=== PATIENT | male | born 1965 | race Caucasian/White ===

== ENCOUNTER 2020-04-17 12:21 | Inpatient (IN) | payer BC ==
[2020-04-17] MEDS ORDERED: Ondansetron 4 MG/2 ML SDV IVPUSH ONE (12:51)
[2020-04-17] MEDS ORDERED: HYDROmorphone 1 MG/ML Syringe IVPUSH ONE (12:53)
[2020-04-17] MEDS ORDERED: Famotidine 20 MG/2 ML SDV IVPUSH ONE (12:53)
[2020-04-17] MEDS ORDERED: Diatrizoate Meglumine/Diatrizoate Sodium 37% 120 ML Bottle PO ONE (13:18)
[2020-04-17] MEDS ORDERED: Iopamidol 612 MG/ML 100 ML Bottle IVPUSH ONE (13:18)
[2020-04-17] MEDS: Sodium Chloride 0.9% 1,000 ML IV SCH ×2 (13:18→15:56)
--- NOTE | 2020-04-17 13:20 | CR ---
Chest: Portable view of the chest was obtained. Comparison: No prior chest imaging is available. Parenchymal masses are seen within both sides of the chest, largest on the right side measures 4.9 cm. Right-sided infusion catheter is seen. Heart is mildly enlarged. Upper mediastinum is normal. Bony structures are grossly intact. Impression: 1. Multiple pulmonary masses. 2. Right-sided infusion catheter. 3. Nothing acute is definitely appreciated. Diagnostic code #9 This report was dictated in MDT
[2020-04-17] MEDS: Sodium Chloride 0.9% 10 ML Syringe FLUSH PRN ×2 (13:23→14:08)
--- NOTE | 2020-04-17 13:48 | EDM.PDOC ---
ED HPI GENERAL MEDICAL PROBLEM - General Chief Complaint: General Stated Complaint: RAPID HEART RATE Time Seen by Provider: 04/17/20 12:34 Source of Information: Reports: Patient, Family, Provider History Limitations: Reports: No Limitations - History of Present Illness INITIAL COMMENTS - FREE TEXT/NARRATIVE: The patient presents from Dr Lund office for rapid heart rate, nausea and upper abdominal pain. 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 He has been feeling weak for over a week. With nausea but no vomiting. He also has no appetite. He has shortness of breath with exertion but no chest pain. He has no fever, chills, cough, congestion, runny nose, or dysuria. He was on IV chemo but he was not tolerating that. He then started Affinitor orally for the cancer. He did not tolerate that. He went to see Dr Solis today and his heart rate was very fast. He was sent over for further work up. Onset: Gradual Duration: Week(s): Location: Reports: Abdomen Quality: Reports: Sharp Severity: Moderate Improves with: Reports: None Worsens with: Reports: None Associated Symptoms: Reports: Loss of Appetite, Nausea/Vomiting, Shortness of Breath. Denies: Chest Pain, Cough, Fever/Chills, Headaches Abdominal Pain Score (Numeric/FACES): 6 - Related Data Allergies Allergy/AdvReac Type Severity Reaction Status Date / Time No Known Drug Allergies Allergy N/A Verified 04/17/20 12:39 Home Meds: Home Meds Albuterol Sulfate [Albuterol Sulfate Hfa] 8.5 gm IH 03/01/20 [History] Ertugliflozin Pidolate [Steglatro] 5 mg PO DAILY 03/01/20 [History] Hydrocodone/Acetaminophen [[place] 5-325 Tablet] 1 each PO 03/01/20 [History] OLANZapine [ZyPREXA] 10 mg PO DAILY 03/01/20 [History] Omeprazole 20 mg PO WITHBREAKFAST 03/01/20 [History] Prochlorperazine [Compazine] 10 mg PO Q6H PRN 03/01/20 [History] Sucralfate [Carafate] 1 gm PO 03/01/20 [History] atorvaSTATin [Lipitor] 10 mg PO BEDTIME 03/01/20 [History] dexAMETHasone [Dexamethasone] 4 mg PO Q6H 03/01/20 [History] metFORMIN [Glucophage XR] 500 mg 03/01/20 [History] ondansetron HCL [Zofran] 8 mg PO 03/01/20 [History] ED ROS GENERAL - Review of Systems Review Of Systems: See Below Constitutional: Reports: Malaise, Weakness, Fatigue. Denies: Fever, Chills HEENT: Reports: No Symptoms Respiratory: Reports: Shortness of Breath. Denies: Cough Cardiovascular: Reports: Palpitations. Denies: Chest Pain Endocrine: Reports: No Symptoms GI/Abdominal: Reports: Abdominal Pain, Nausea. Denies: Diarrhea, Vomiting : Reports: No Symptoms ED EXAM, GENERAL - Physical Exam Exam: See Below Exam Limited By: No Limitations General Appearance: Alert, No Apparent Distress Ears: Normal External Exam Nose: Normal Inspection Head: Atraumatic, Normocephalic Neck: Normal Inspection Respiratory/Chest: No Respiratory Distress, Decreased Breath Sounds Cardiovascular: No Edema, No Murmur, Tachycardia GI/Abdominal: Soft, Non-Tender, No Organomegaly, No Mass Back Exam: Normal Inspection Extremities: Normal Inspection EKG INTERPRETATION EKG Date: 04/17/20 Time: 12:56 Rhythm: Other (Sinus tachycardia) Rate (Beats/Min): 104 [place]: Normal P-Wave: Present QRS: Normal ST-T: Normal QT: Normal Course - Vital Signs Last Recorded V/S: Last Vital Signs Temp 98.8 F 04/17/20 14:30 Pulse 107 H 04/17/20 15:28 Resp 22 H 04/17/20 15:28 BP 134/82 04/17/20 15:28 Pulse Ox 94 L 04/17/20 15:28 - Orders/Labs/Meds Orders: Active Orders 24 hr Category Date Time Status Cardiac Monitoring [RC] . DIRECTED Care 04/17/20 12:51 Active EKG 12 Lead [EKG Documentation Completion] [RC] STAT Care 04/17/20 14:27 Active EKG Documentation Completion [RC] STAT Care 04/17/20 12:52 Active Implanted Port Access [RC] ASDIRECTED Care 04/17/20 12:50 Active CORONAVIRUS COVID-19 CHRISTIAN [MOLEC] Stat Lab 04/17/20 15:48 Ordered THYROXINE (T4) [REF] Stat Lab 04/17/20 13:10 Received UA W/MICROSCOPIC [URIN] Stat Lab 04/17/20 12:51 Ordered Sodium Chloride 0.9% [Normal Saline] 1,000 ml Med 04/17/20 13:00 Active IV .BOLUS Sodium Chloride 0.9% [Normal Saline] 100 ml Med 04/17/20 14:00 Active IV ASDIRECTED Sodium Chloride 0.9% [Saline Flush] Med 04/17/20 13:18 Active 10 ml FLUSH ONETIME PRN ED Antiemetic Medication Reflex [OM.PC] Stat Oth 04/17/20 12:51 Ordered Medication Orders Sodium Chloride (Normal Saline) 1,000 mls @ 1,000 mls/hr IV .BOLUS LOUANN Last Admin: 04/17/20 13:18 Dose: 1,000 mls/hr Documented by: JONE Sodium Chloride (Normal Saline) 100 mls @ 75 mls/hr IV ASDIRECTED LOUANN Last Admin: 04/17/20 14:08 Dose: 75 mls/hr Documented by: SAM Sodium Chloride (Saline Flush) 10 ml FLUSH ONETIME PRN PRN Reason: IV FLUSH Last Admin: 04/17/20 14:08 Dose: 10 ml Documented by: Admin: 04/17/20 13:23 Dose: 10 ml Documented by: JONE Labs: Laboratory Tests 04/17/20 04/17/20 Range/Units 13:10 13:10 WBC 9.28 H (4.23-9.07) K/mm3 RBC 3.73 L (4.63-6.08) M/mm3 Hgb 9.3 L (13.7-17.5) gm/dl Hct 29.4 L (40.1-51.0) % MCV 78.8 L (79.0-92.2) fl MCH 24.9 L (25.7-32.2) pg MCHC 31.6 L (32.2-35.5) g/dl RDW Std Deviation 49.0 H (35.1-43.9) fL Plt Count 186 (163-337) K/mm3 MPV 8.4 L (9.4-12.3) fl Neut % (Auto) 84.5 H (34.0-67.9) % Lymph % (Auto) 4.2 L (21.8-53.1) % [place] % (Auto) 10.0 (5.3-12.2) % Eos % (Auto) 0.9 (0.8-7.0) Baso % (Auto) 0.1 (0.1-1.2) % Neut # (Auto) 7.84 H (1.78-5.38) K/mm3 Lymph # (Auto) 0.39 L (1.32-3.57) K/mm3 [place] # (Auto) 0.93 H (0.30-0.82) K/mm3 Eos # (Auto) 0.08 (0.04-0.54) K/mm3 Baso # (Auto) 0.01 (0.01-0.08) K/mm3 Manual Slide Review Abnormal smear Sodium 136 (136-145) mEq/L Potassium 3.9 (3.5-5.1) mEq/L Chloride 100 (98-107) mEq/L Carbon Dioxide 24 (21-32) mEq/L Anion Gap 15.9 H (5-15) BUN 8 (7-18) mg/dL Creatinine 0.7 (0.7-1.3) mg/dL Est Cr Clr Drug Dosing 125.50 mL/min Estimated GFR (MDRD) > 60 (>60) mL/min BUN/Creatinine Ratio 11.4 L (14-18) Glucose 233 H (74-106) mg/dL Calcium 8.6 (8.5-10.1) mg/dL Magnesium 1.6 L (1.8-2.4) mg/dl Total Bilirubin 0.5 (0.2-1.0) mg/dL AST 51 H (15-37) U/L ALT 50 (16-63) U/L Alkaline Phosphatase 127 H (46-116) U/L Troponin I < 0.017 (0.00-0.056) ng/mL Total Protein 6.7 (6.4-8.2) g/dl Albumin 2.3 L (3.4-5.0) g/dl Globulin 4.4 gm/dL Albumin/Globulin Ratio 0.5 L (1-2) Lipase 95 (73-393) U/L Meds: Medications Generic Name Dose Route Start Last Admin Trade Name Freq PRN Reason Stop Dose Admin Sodium Chloride 1,000 mls @ 1,000 mls/hr 04/17/20 13:00 04/17/20 13:18 Normal Saline IV 1,000 mls/hr .BOLUS LOUANN Administration Sodium Chloride 100 mls @ 75 mls/hr 04/17/20 14:00 04/17/20 14:08 Normal Saline IV 75 mls/hr ASDIRECTED LOUANN Administration Sodium Chloride 10 ml 04/17/20 13:18 04/17/20 14:08 Saline Flush FLUSH 10 ml ONETIME PRN Administration IV FLUSH Discontinued Medications Generic Name Dose Route Start Last Admin Trade Name Freq PRN Reason Stop Dose Admin Adenosine 6 mg 04/17/20 14:22 04/17/20 14:28 Adenocard IVPUSH 04/17/20 14:23 6 mg NOW ONE Administration Adenosine 6 mg 04/17/20 15:41 04/17/20 15:48 Adenocard IVPUSH 04/17/20 15:42 6 mg NOW ONE Administration Diatrizoate Meglum/Diatrizoate Sod 120 ml 04/17/20 13:18 04/17/20 14:08 Gastrografin 37% PO 04/17/20 13:19 90 ml ONETIME ONE Administration Famotidine 20 mg 04/17/20 12:53 04/17/20 13:18 Pepcid IVPUSH 04/17/20 12:54 20 mg ONETIME ONE Administration Hydromorphone HCl 1 mg 04/17/20 12:53 04/17/20 13:18 Dilaudid IVPUSH 04/17/20 12:54 1 mg ONETIME ONE Administration Iopamidol 100 ml 04/17/20 13:18 04/17/20 14:08 Isovue-300 (61%) IVPUSH 04/17/20 13:19 100 ml ONETIME ONE Administration Metoprolol Succinate 50 mg 04/17/20 15:42 Toprol Xl PO 04/17/20 15:43 ONETIME ONE Metoprolol Tartrate 50 mg 04/17/20 15:41 Lopressor PO 04/17/20 15:42 ONETIME ONE Ondansetron HCl 4 mg 04/17/20 12:51 04/17/20 13:18 Zofran IVPUSH 04/17/20 12:52 4 mg ONETIME ONE Administration - Re-Assessments/Exams Free Text/Narrative Re-Assessment/Exam: 04/17/20 13:50 I ordered an IV NS 1L bolus, zofran 4mg IV, pepcid 20mg IV, dilaudid 1mg IV, EKG, CXR, labs and a CT of his abdomen and pelvis. Before I could get the EKG he converted from a SVT to a sinus tachycardia. 04/17/20 15:37 He went back into SVT. I ordered adenisine 6mg IV and he converted right away. 04/17/20 15:40 His WBC was elevated at 9.28. His Hgb was low at 9.3. His platelets were 185. His anion gap is elevated at 15.9. His glucose is elevated at 233. His alk phos is elevated at 127. His troponin is negative. His lipase is normal. His CT shows numerous lung masses compatible with metastatic disease. Numerous liver lesions compatible with liver metastatic disease. Left adrenal nodule most likely metastatic. Large upper abdominal mass with maximum measurement of 16.1cm. This surrounds the stomach antrum and proximal duodenum causing narrowing. This abuts the inferior liver and difficult to exclude liver involvement. Small amount of ascites. Questionable lytic bone lesion within L3. The patient went back into SVT. I gave him some adenosine and he converted right away. I also gave him some metoprolol succinate 50mg PO to keep him out of it. I called Dr Sullivan and he did not have the CT in front of him but he feels this is a new finding. He sees on on Friday. He offered to admit him there or he could be admitted here. The patient wanted to stay here. I called Dr Barnett and he agreed to the admission. Departure - Departure Time of Disposition: 16:00 Disposition: Admitted As Inpatient 65 Condition: Fair Clinical Impression: Thyroid cancer, Metastasis to liver, Metastasis to brain, SVT (supraventricular tachycardia), Nausea Metastasis to lung Qualifiers: Laterality: unspecified laterality Qualified Code(s): C78.00 - Secondary malignant neoplasm of unspecified lung Abdominal pain Qualifiers: Abdominal location: upper abdomen, unspecified Qualified Code(s): R10.10 - Upper abdominal pain, unspecified - Discharge Information Referrals: Alban Solis MD [Primary Care Provider] - Forms: ED Department Discharge Sepsis Event Note (ED) - Evaluation Sepsis Screening Result: Possible Sepsis Risk - Focused Exam Vital Signs: Vital Signs Temp Pulse Resp BP Pulse Ox 04/17/20 15:28 107 H 22 H 134/82 94 L 04/17/20 14:30 98.8 F 107 H 16 137/86 98 04/17/20 12:40 98.2 F 177 H 23 H 114/87 98 - My Orders Last 24 Hours: My Active Orders 04/17/20 12:50 Implanted Port Access [RC] ASDIRECTED 04/17/20 12:51 Cardiac Monitoring [RC] . DIRECTED UA W/MICROSCOPIC [URIN] Stat ED Antiemetic Medication Reflex [OM.PC] Stat 04/17/20 12:52 EKG Documentation Completion [RC] STAT 04/17/20 13:00 Sodium Chloride 0.9% [Normal Saline] 1,000 ml IV .BOLUS 04/17/20 13:10 THYROXINE (T4) [REF] Stat 04/17/20 13:18 Sodium Chloride 0.9% [Saline Flush] 10 ml FLUSH ONETIME PRN 04/17/20 14:00 Sodium Chloride 0.9% [Normal Saline] 100 ml IV ASDIRECTED 04/17/20 14:27 EKG 12 Lead [EKG Documentation Completion] [RC] STAT 04/17/20 15:48 CORONAVIRUS COVID-19 CHRISTIAN [MOLEC] Stat - Assessment/Plan Last 24 Hours: My Active Orders 04/17/20 12:50 Implanted Port Access [RC] ASDIRECTED 04/17/20 12:51 Cardiac Monitoring [RC] . DIRECTED UA W/MICROSCOPIC [URIN] Stat ED Antiemetic Medication Reflex [OM.PC] Stat 04/17/20 12:52 EKG Documentation Completion [RC] STAT 04/17/20 13:00 Sodium Chloride 0.9% [Normal Saline] 1,000 ml IV .BOLUS 04/17/20 13:10 THYROXINE (T4) [REF] Stat 04/17/20 13:18 Sodium Chloride 0.9% [Saline Flush] 10 ml FLUSH ONETIME PRN 04/17/20 14:00 Sodium Chloride 0.9% [Normal Saline] 100 ml IV ASDIRECTED 04/17/20 14:27 EKG 12 Lead [EKG Documentation Completion] [RC] STAT 04/17/20 15:48 CORONAVIRUS COVID-19 CHRISTIAN [MOLEC] Stat
[2020-04-17] MEDS ORDERED: Sodium Chloride 0.9% 100 ML IV SCH (14:00)
[2020-04-17] MEDS ORDERED: Adenosine 6 MG/2 ML SDV IVPUSH ONE ×3 (14:22→16:33)
--- NOTE | 2020-04-17 15:03 | CT ---
CT abdomen and pelvis Technique: Multiple axial sections were obtained from above the dome of the diaphragm inferiorly through the pubic symphysis. Intravenous and oral contrast was given. Delayed images were also obtained through the abdomen and pelvis Comparison: No prior abdominal imaging is available. Findings: Small pleural effusion is seen within the right base. Numerous pulmonary nodules are seen throughout the visualized lung bases. Numerous low-density lesions are seen within the liver compatible with metastatic disease. Spleen appears within normal limits. Left adrenal nodule is seen most likely metastatic. Pancreas shows no discrete abnormality. Large mass noted within the upper right abdomen which surrounds the duodenum and stomach antrum narrowing the lumen. This mass measures 16.1 cm x 8.3 cm. Mass appears to abut and difficult to exclude invasion into the liver. Kidneys showed symmetric enhancement without abnormality. Small amount of ascites is seen within the abdomen. Aorta shows no aneurysm. No retroperitoneal adenopathy is seen. No pelvic mass or adenopathy is seen. Bone window settings were reviewed. [place] lesion seen within L3 and difficult to exclude bony metastatic lesion. Mild degenerative changes seen. Delayed images shows contrast within the ureters and within the bladder. Impression: 1. Numerous lung masses compatible with metastatic disease. Numerous liver lesions compatible with liver metastatic disease. 2. Left adrenal nodule most likely metastatic. 3. Large upper abdominal mass with maximum measurement of 16.1 cm. This surrounds the stomach antrum and proximal duodenum causing narrowing. This abuts the inferior liver and difficult to exclude liver involvement. 4. Small amount of ascites. 5. Questionable lytic bone lesion within L3. Diagnostic code #9 This report was dictated in MDT
[2020-04-17] MEDS ORDERED: Metoprolol Tartrate 50 MG Tab PO ONE (15:41)
[2020-04-17] MEDS ORDERED: Metoprolol Succinate 50 MG Tab.ER PO ONE (15:42)
[2020-04-17] MEDS ORDERED: Sodium Chloride 0.9% 1,000 ML IV ONE (15:51)
[2020-04-17] MEDS ORDERED: Labetalol 100 MG/20 ML MDV IVPUSH ONE (16:55)
[2020-04-17] MEDS: Lactated Ringers 1,000 ML IV SCH ×2 (17:08→23:50)
[2020-04-17] MEDS ORDERED: Metoprolol Tartrate 5 MG/5 ML SDV IVPUSH STA (20:48)
[2020-04-17] MEDS ORDERED: oxyCODONE 5 MG Tab PO PRN (21:03)
[2020-04-17] MEDS ORDERED: traZODone 50 MG Tab PO SCH (21:31)
[2020-04-17] MEDS ORDERED: Magnesium Sulfate/Water 4 GM in Premix Bag 1 BAG IV ONE (21:32)
[2020-04-17] MEDS: Morphine 2 MG/ML SYRINGE IVPUSH PRN (21:34)
[2020-04-17] MEDS ORDERED: Acetaminophen 325 MG Tab PO PRN (22:09)
--- NOTE | 2020-04-17 22:57 | PCM.HP.2 ---
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 Solis. Patient was first diagnosed with anaplastic thyroid cancer November of this year. He went through 16 treatments of radiation to his left lung secondary to mass and 4 sessions of chemo. He started Afinitor which caused significant side effects including generalized pain, abdominal pain, joint pain, shortness of breath, so patient stopped medication last Friday after on being on it for 3 weeks. Patient continued to have right upper quadrant pain and weakness and diarrhea last night. Patient was sent from his primary care provider's office to the ER. In the emergency department patient had a CT of his abdomen that showed numerous lung masses, liver lesions, left adrenal nodule, and a large upper abdominal mass with maximum measurement of 16.1 cm. In the emergency department patient was found to be in SVT and given adenosine with adequate results. Unfortunately, patient continued to bounce into SVT which required several rounds of adenosine and ultimately was given metoprolol succinate 50 mg p.o. and labetalol 20 mg IV. The emergency room provider did speak with his oncologist Dr. Sullivan who felt he would benefit from admission for rehydration and follow-up of his SVT. Abdominal Pain Score (Numeric/FACES): 6 - Related Data Allergies/Adverse Reactions: Allergies Allergy/AdvReac Type Severity Reaction Status Date / Time No Known Drug Allergies Allergy N/A Verified 04/17/20 12:39 Home Medications: Home Meds Albuterol Sulfate [Albuterol Sulfate Hfa] 8.5 gm IH ASDIRECTED PRN 03/01/20 [History] Ertugliflozin Pidolate [Steglatro] 5 mg PO DAILY 03/01/20 [History] Hydrocodone/Acetaminophen [[place] 5-325 Tablet] 1 each PO ASDIRECTED PRN 03/01/20 [History] Omeprazole 20 mg PO WITHBREAKFAST 03/01/20 [History] Prochlorperazine [Compazine] 10 mg PO Q6H PRN 03/01/20 [History] Sucralfate [Carafate] 1 gm PO ASDIRECTED PRN 03/01/20 [History] atorvaSTATin [Lipitor] 10 mg PO BEDTIME 03/01/20 [History] metFORMIN [Glucophage XR] 1,000 mg PO DAILY 03/01/20 [History] ondansetron HCL [Zofran] 8 mg PO ASDIRECTED PRN 03/01/20 [History] Past Medical History Respiratory History: Reports: Asthma Endocrine/Metabolic History: Reports: Diabetes, Type II Oncologic (Cancer) History: Reports: Thyroid - Infectious Disease History Infectious Disease History: Reports: None - Past Surgical History HEENT Surgical History: Reports: Oral Surgery Other HEENT Surgeries/Procedures: dental implant Respiratory Surgical History: Reports: Lung Biopsies Other Respiratory Surgeries/Procedures: right lung biposy Oncologic Surgical History: Reports: None Social & Family History - Tobacco Use Smoking Status *Q: Never Smoker - Caffeine Use Caffeine Use: Reports: None, Coffee - Recreational Drug Use Recreational Drug Use: No H&P Review of Systems - Review of Systems: Review Of Systems: Comprehensive ROS is negative, except as noted in HPI. Exam - Exam Exam: See Below - Vital Signs Vital Signs: Last Vital Signs Temp 98.2 F 04/17/20 19:45 Pulse 112 H 04/17/20 21:11 Resp 18 04/17/20 19:45 BP 120/73 04/17/20 21:11 Pulse Ox 90 L 04/17/20 22:09 Weight: 87.679 kg - Exam General: Alert, Oriented, 4 HEENT: Conjunctiva Clear, Hearing Intact, Mucosa Moist & [place] Neck: Supple, Trachea Midline, 2 Lungs: Clear to Auscultation, Normal Respiratory Effort Cardiovascular: Regular Rhythm, Tachycardia (Sinus tachycardia in the low 100s) GI/Abdominal Exam: Normal Bowel Sounds, Soft, Non-Tender, No Organomegaly, No Distention, No Abnormal Bruit Extremities: Normal Inspection, Normal Range of Motion, Non-Tender, No Pedal Edema, Normal Capillary Refill Peripheral Pulses: 2+: Posterior Tibial (L), Posterior Tibial (R), Dorsalis Pedis (L), Dorsalis Pedis (R) Skin: Warm, Dry, Intact Neuro Extensive - Mental Status: Alert, Oriented x3, Normal Mood/Affect, Normal Cognition Psychiatric: Alert, Normal Affect, Normal Mood - Patient Data Lab Results Last 24 hrs: Laboratory Results - last 24 hr 04/17/20 04/17/20 04/17/20 Range/Units 13:10 13:10 15:50 WBC 9.28 H (4.23-9.07) K/mm3 RBC 3.73 L (4.63-6.08) M/mm3 Hgb 9.3 L (13.7-17.5) gm/dl Hct 29.4 L (40.1-51.0) % MCV 78.8 L (79.0-92.2) fl MCH 24.9 L (25.7-32.2) pg MCHC 31.6 L (32.2-35.5) g/dl RDW Std Deviation 49.0 H (35.1-43.9) fL Plt Count 186 (163-337) K/mm3 MPV 8.4 L (9.4-12.3) fl Neut % (Auto) 84.5 H (34.0-67.9) % Lymph % (Auto) 4.2 L (21.8-53.1) % Ness % (Auto) 10.0 (5.3-12.2) % Eos % (Auto) 0.9 (0.8-7.0) Baso % (Auto) 0.1 (0.1-1.2) % Neut # (Auto) 7.84 H (1.78-5.38) K/mm3 Lymph # (Auto) 0.39 L (1.32-3.57) K/mm3 Ness # (Auto) 0.93 H (0.30-0.82) K/mm3 Eos # (Auto) 0.08 (0.04-0.54) K/mm3 Baso # (Auto) 0.01 (0.01-0.08) K/mm3 Manual Slide Review Abnormal smear Sodium 136 (136-145) mEq/L Potassium 3.9 (3.5-5.1) mEq/L Chloride 100 (98-107) mEq/L Carbon Dioxide 24 (21-32) mEq/L Anion Gap 15.9 H (5-15) BUN 8 (7-18) mg/dL Creatinine 0.7 (0.7-1.3) mg/dL Est Cr Clr Drug Dosing 125.50 mL/min Estimated GFR (MDRD) > 60 (>60) mL/min BUN/Creatinine Ratio 11.4 L (14-18) Glucose 233 H (74-106) mg/dL Calcium 8.6 (8.5-10.1) mg/dL Magnesium 1.6 L (1.8-2.4) mg/dl Total Bilirubin 0.5 (0.2-1.0) mg/dL AST 51 H (15-37) U/L ALT 50 (16-63) U/L Alkaline Phosphatase 127 H (46-116) U/L Troponin I < 0.017 (0.00-0.056) ng/mL Total Protein 6.7 (6.4-8.2) g/dl Albumin 2.3 L (3.4-5.0) g/dl Globulin 4.4 gm/dL Albumin/Globulin Ratio 0.5 L (1-2) Lipase 95 (73-393) U/L Urine Color (Yellow) Urine Appearance (Clear) Urine pH (5.0-8.0) Ur Specific [place] (1.005-1.030) Urine Protein (Negative) Urine Glucose (UA) (Negative) Urine Ketones (Negative) Urine Occult Blood (Negative) Urine Nitrite (Negative) Urine Bilirubin (Negative) Urine Urobilinogen (0.2-1.0) Ur Leukocyte Esterase (Negative) Urine RBC (0-5) /hpf Urine WBC (0-5) /hpf Ur Squamous Epith Cells (0-5) /hpf Urine Bacteria (FEW) /hpf Urine Mucus (FEW) /hpf COVID-19 ([facility]STIAN) Negative (NEGATIVE) 04/17/20 Range/Units 16:20 WBC (4.23-9.07) K/mm3 RBC (4.63-6.08) M/mm3 Hgb (13.7-17.5) gm/dl Hct (40.1-51.0) % MCV (79.0-92.2) fl MCH (25.7-32.2) pg MCHC (32.2-35.5) g/dl RDW Std Deviation (35.1-43.9) fL Plt Count (163-337) K/mm3 MPV (9.4-12.3) fl Neut % (Auto) (34.0-67.9) % Lymph % (Auto) (21.8-53.1) % Ness % (Auto) (5.3-12.2) % Eos % (Auto) (0.8-7.0) Baso % (Auto) (0.1-1.2) % Neut # (Auto) (1.78-5.38) K/mm3 Lymph # (Auto) (1.32-3.57) K/mm3 Ness # (Auto) (0.30-0.82) K/mm3 Eos # (Auto) (0.04-0.54) K/mm3 Baso # (Auto) (0.01-0.08) K/mm3 Manual Slide Review Sodium (136-145) mEq/L Potassium (3.5-5.1) mEq/L Chloride (98-107) mEq/L Carbon Dioxide (21-32) mEq/L Anion Gap (5-15) BUN (7-18) mg/dL Creatinine (0.7-1.3) mg/dL Est Cr Clr Drug Dosing mL/min Estimated GFR (MDRD) (>60) mL/min BUN/Creatinine Ratio (14-18) Glucose (74-106) mg/dL Calcium (8.5-10.1) mg/dL Magnesium (1.8-2.4) mg/dl Total Bilirubin (0.2-1.0) mg/dL AST (15-37) U/L ALT (16-63) U/L Alkaline Phosphatase (46-116) U/L Troponin I (0.00-0.056) ng/mL Total Protein (6.4-8.2) g/dl Albumin (3.4-5.0) g/dl Globulin gm/dL Albumin/Globulin Ratio (1-2) Lipase (73-393) U/L Urine Color Yellow (Yellow) Urine Appearance Clear (Clear) Urine pH 6.5 (5.0-8.0) Ur Specific [place] 1.020 (1.005-1.030) Urine Protein 1+ H (Negative) Urine Glucose (UA) 2+ H (Negative) Urine Ketones 2+ H (Negative) Urine Occult Blood Negative (Negative) Urine Nitrite Negative (Negative) Urine Bilirubin 1+ H (Negative) Urine Urobilinogen 0.2 (0.2-1.0) Ur Leukocyte Esterase Negative (Negative) Urine RBC 0-5 (0-5) /hpf Urine WBC 0-5 (0-5) /hpf Ur Squamous Epith Cells 0-5 (0-5) /hpf Urine Bacteria Few (FEW) /hpf Urine Mucus Few (FEW) /hpf COVID-19 (CHRISTIAN) (NEGATIVE) Result Diagrams: 04/17/20 13:10 04/17/20 13:10 EKG INTERPRETATION EKG Date: 04/17/20 Rhythm: NSR (Sinus tachycardia) Rate (Beats/Min): 104 [place]: Normal P-Wave: Present QRS: Normal ST-T: Normal QT: Normal EKG Interpretation Comments: Normal other than rate Sepsis Event Note - Evaluation Sepsis Screening Result: No Definite Risk - Focused Exam Vital Signs: Vital Signs Temp Pulse Pulse Resp BP BP BP 04/17/20 22:09 04/17/20 21:11 112 H 120/73 04/17/20 19:45 98.2 F 18 134/76 04/17/20 19:29 112 H 2 L 135/75 04/17/20 17:31 98 24 H 121/76 04/17/20 16:06 99.2 F 108 H 24 H 134/85 04/17/20 15:58 106 H 124/79 04/17/20 15:28 107 H 22 H 134/82 04/17/20 14:30 98.8 F 107 H 16 137/86 04/17/20 12:40 98.2 F 177 H 23 H 114/87 Pulse Ox Pulse Ox 04/17/20 22:09 90 L 04/17/20 21:11 04/17/20 19:45 92 L 04/17/20 19:29 97 04/17/20 17:31 94 L 04/17/20 16:06 96 04/17/20 15:58 04/17/20 15:28 94 L 04/17/20 14:30 98 04/17/20 12:40 98 Date Exam was Performed: 04/17/20 Time Exam was Performed: 23:44 Problem List Initiated/Reviewed/Updated: Yes Orders Last 24hrs: Active Orders 24 hr Category Date Time Status Admission Status [Patient Status] [ADT] Routine ADT 04/17/20 18:10 Active Blood Glucose Check, Bedside [RC] QIDACANDBED Care 04/17/20 22:13 Active Cardiac Monitoring [RC] . DIRECTED Care 04/17/20 12:51 Active EKG 12 Lead [EKG Documentation Completion] [RC] STAT Care 04/17/20 14:27 Active EKG Documentation Completion [RC] STAT Care 04/17/20 12:52 Active Implanted Port Access [RC] ASDIRECTED Care 04/17/20 12:50 Active Oxygen Therapy [RC] PRN Care 04/17/20 22:09 Active Up With Assistance [RC] ASDIRECTED Care 04/17/20 22:09 Active VTE/DVT Education [RC] PER UNIT ROUTINE Care 04/17/20 22:09 Active Vital Signs [RC] Q4HR Care 04/17/20 22:09 Active Regular Diet [DIET] Diet 04/18/20 Breakfast Active CBC WITH AUTO DIFF [HEME] AM Lab 04/18/20 05:11 Ordered COMPREHENSIVE METABOLIC PN,CMP [CHEM] AM Lab 04/18/20 05:11 Ordered MAGNESIUM [CHEM] AM Lab 04/18/20 05:11 Ordered PHOSPHORUS [CHEM] AM Lab 04/18/20 05:11 Ordered THYROXINE (T4) [REF] Stat Lab 04/17/20 13:10 Received Acetaminophen [Tylenol] Med 04/17/20 22:09 Active 650 mg PO Q4H PRN Enoxaparin [Lovenox] Med 04/18/20 09:00 Active 40 mg SUBCUT DAILY Insulin Lispro [HumaLOG] Med 04/18/20 07:00 Active See Protocol SUBCUT QIDACANDBED Lactated Ringers [Ringers, Lactated] 1,000 ml Med 04/17/20 17:00 Active IV ASDIRECTED Magnesium Sulfate/Water [Magnesium Sulfate in Water Med 04/17/20 21:32 Active Premix] 4 gm Premix Bag 1 bag IV ONETIME Metoprolol Succinate [Toprol XL] Med 04/18/20 09:00 Active 50 mg PO DAILY Morphine Med 04/17/20 21:02 Active 2 mg IVPUSH Q2H PRN Pantoprazole [ProTONIX] Med 04/18/20 07:00 Active 40 mg PO WITHBREAKFAST Simvastatin [Zocor] Med 04/18/20 21:00 Active 10 mg PO BEDTIME Sodium Chloride 0.9% [Normal Saline] 1,000 ml Med 04/17/20 13:00 Active IV .BOLUS Sodium Chloride 0.9% [Normal Saline] 100 ml Med 04/17/20 14:00 Active IV ASDIRECTED Sodium Chloride 0.9% [Saline Flush] Med 04/17/20 13:18 Active 10 ml FLUSH ONETIME PRN oxyCODONE Med 04/17/20 21:03 Active 5 mg PO Q4H PRN traZODone Med 04/17/20 21:31 Active 50 mg PO BEDTIME ED Antiemetic Medication Reflex [OM.PC] Stat Oth 04/17/20 12:51 Ordered Resuscitation Status Routine Resus Stat 04/17/20 22:09 Ordered Medication Orders Acetaminophen (Tylenol) 650 mg PO Q4H PRN PRN Reason: Pain (Mild 1-3)/fever Enoxaparin Sodium (Lovenox) 40 mg SUBCUT DAILY [facility] Sodium Chloride (Normal Saline) 1,000 mls @ 1,000 mls/hr IV .BOLUS [facility] Last Admin: 04/17/20 15:56 Dose: 1,000 mls/hr Documented by: Infusion: 04/17/20 14:18 Dose: 1,000 mls/hr Documented by: Admin: 04/17/20 13:18 Dose: 1,000 mls/hr Documented by: JONE Sodium Chloride (Normal Saline) 100 mls @ 75 mls/hr IV ASDIRECTED [facility] Last Admin: 04/17/20 14:08 Dose: 75 mls/hr Documented by: SAM Lactated Ringer's (Ringers, Lactated) 1,000 mls @ 150 mls/hr IV ASDIRECTED [facility] Last Admin: 04/17/20 17:08 Dose: 150 mls/hr Documented by: JONE Magnesium Sulfate 4 gm/ Premix 50 mls @ 12.5 mls/hr IV ONETIME ONE Stop: 04/18/20 01:31 Last Admin: 04/17/20 21:45 Dose: 12.5 mls/hr Documented by: CYNTHIA Insulin Human Lispro (Humalog) 0 unit SUBCUT QIDACANDBED [facility]; Protocol Metoprolol Succinate (Toprol Xl) 50 mg PO DAILY [facility] Morphine Sulfate (Morphine) 2 mg IVPUSH Q2H PRN PRN Reason: Pain (severe 7-10) Last Admin: 04/17/20 21:34 Dose: 2 mg Documented by: CYNTHIA Oxycodone HCl (Oxycodone) 5 mg PO Q4H PRN PRN Reason: Pain (moderate 4-6) Pantoprazole Sodium (Protonix) 40 mg PO WITHBREAKFAST [facility]ANN Simvastatin (Zocor) 10 mg PO BEDTIME [facility] Sodium Chloride (Saline Flush) 10 ml FLUSH ONETIME PRN PRN Reason: IV FLUSH Last Admin: 04/17/20 14:08 Dose: 10 ml Documented by: Admin: 04/17/20 13:23 Dose: 10 ml Documented by: JONE Trazodone HCl (Trazodone) 50 mg PO BEDTIME [facility] Last Admin: 04/17/20 21:43 Dose: 50 mg Documented by: CYNTHIA Assessment/Plan Comment:: Admission * 55-year-old with metastatic anaplastic thyroid cancer * CT scan demonstrates significant worsening from prior exam with numerous lung masses compatible with metastatic disease. Numerous liver lesions compatible with liver metastatic disease. Left adrenal nodule most likely metastatic. Large upper abdominal mass with maximum measurement of 16.1 cm. This surrounds the stomach antrum and proximal duodenum causing narrowing. This abuts the inferior liver and difficult to exclude liver involvement. Small amount of ascites. Questionable lytic bone lesion within L3. * Patient is considering hospice care. * Abdominal pain and weakness secondary to metastatic cancer * Pain has been worsening over the last couple of weeks. Initially attributed to Afinitor. * Likely secondary to worsening disease and side effects of Afinitor. * Mild hypovolemia * PSVT * Received multiple adenosine 6 mg IV push and a single labetalol 20 mg IV push * Started on Toprol XL 50 mg in the emergency department * Microcytic anemiahemoglobin 9.3 * Type 2 diabetes * On oral medications * Previously on Ozempic * Currently on metformin and Steglatro Plan * Admit to ICU * Continue Toprol-XL 50 mg daily * Lopressor 5 mg IV as needed heart rate greater than 150 * Morphine 2 mg IV every 2 hours as needed pain * Oxycodone 5 to 10 mg every 4 hours as needed pain * LR at 150 mL an hour * Hold oral medications for diabetes * Fine scale insulin and fingerstick blood sugar 4 times daily * Regular diet * VTE prophylaxis with Lovenox * CODE STATUS DNR/DNI * Patient considering hospice care. - Mortality Measure Prognosis:: Poor
[2020-04-18] MEDS: Morphine 2 MG/ML SYRINGE IVPUSH PRN ×2 (00:26→12:15)
[2020-04-18] MEDS: Lactated Ringers 1,000 ML IV SCH (06:33)
[2020-04-18] MEDS ORDERED: Pantoprazole 40 MG Tab.CR PO SCH (07:00)
[2020-04-18] MEDS: Insulin Lispro 100 Units/ML 3 ML Vial SUBCUT SCH ×2 (07:34→12:06)
[2020-04-18] MEDS ORDERED: Metoprolol Succinate 50 MG Tab.ER PO SCH (09:00)
[2020-04-18] MEDS ORDERED: Enoxaparin 40 MG/0.4 ML Syringe SUBCUT SCH (09:00)
--- NOTE | 2020-04-18 14:20 | PCM.DCSUM1 ---
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 Solis. Patient was first diagnosed with anaplastic thyroid cancer November of this year. He went through 16 treatments of radiation to his left lung secondary to mass and 4 sessions of chemo. He started Afinitor which caused significant side effects including generalized pain, abdominal pain, joint pain, shortness of breath, so patient stopped medication last Friday after on being on it for 3 weeks. Patient continued to have right upper quadrant pain and weakness and diarrhea last night. Patient was sent from his primary care provider's office to the ER. In the emergency department rebeca winston had a CT of his abdomen that showed numerous lung masses, liver lesions, left adrenal nodule, and a large upper abdominal mass with maximum measurement of 16.1 cm. In the emergency department patient was found to be in SVT and given adenosine with adequate results. Unfortunately, patient continued to bounce into SVT which required several rounds of adenosine and ultimately was given metoprolol succinate 50 mg p.o. and labetalol 20 mg IV. The emergency room provider did speak with his oncologist Dr. Sullivan who felt he would benefit from admission for rehydration and follow-up of his SVT. Diagnosis: Stroke: No - Discharge Data Discharge Date: 04/18/20 Discharge Disposition: Home, Self-Care 01 Condition: Good - Referral to Home Health Primary Care Physician: Alban Solis MD - Discharge Diagnosis/Problem(s) (1) Anaplastic thyroid carcinoma SNOMED Code(s): 333949094 ICD Code: C73 - MALIGNANT NEOPLASM OF THYROID GLAND Status: Acute Current Visit: Yes (2) Thrombocytopenia SNOMED Code(s): 243880970 ICD Code: D69.6 - THROMBOCYTOPENIA, UNSPECIFIED Status: Acute Current Visit: Yes (3) Anemia SNOMED Code(s): 389295966 ICD Code: D64.9 - ANEMIA, UNSPECIFIED Status: Acute Current Visit: Yes (4) Hypomagnesemia SNOMED Code(s): 962778853 ICD Code: E83.42 - HYPOMAGNESEMIA Status: Acute Current Visit: Yes (5) Hypophosphatemia SNOMED Code(s): 6007511 ICD Code: E83.39 - OTHER DISORDERS OF PHOSPHORUS METABOLISM Status: Acute Current Visit: Yes (6) Diabetes mellitus SNOMED Code(s): 44041975 ICD Code: E11.9 - TYPE 2 DIABETES MELLITUS WITHOUT COMPLICATIONS Status: Acute Current Visit: Yes (7) Hypoalbuminemia SNOMED Code(s): 280663407 ICD Code: E88.09 - OTH DISORDERS OF PLASMA-PROTEIN METABOLISM, NEC Status: Acute Current Visit: Yes (8) Abdominal pain SNOMED Code(s): 35649235 ICD Code: R10.9 - UNSPECIFIED ABDOMINAL PAIN Status: Acute Current Visit: Yes Qualifiers: Abdominal location: upper abdomen, unspecified Qualified Code(s): R10.10 - Upper abdominal pain, unspecified (9) Metastasis to brain Status: Acute Current Visit: Yes (10) Metastasis to liver Status: Acute Current Visit: Yes (11) Metastasis to lung SNOMED Code(s): 53336813 ICD Code: C78.00 - SECONDARY MALIGNANT NEOPLASM OF UNSPECIFIED LUNG Status: Acute Current Visit: Yes Qualifiers: Laterality: unspecified laterality Qualified Code(s): C78.00 - Secondary malignant neoplasm of unspecified lung (12) Nausea SNOMED Code(s): 444898076 ICD Code: R11.0 - NAUSEA Status: Acute Current Visit: Yes (13) SVT (supraventricular tachycardia) SNOMED Code(s): 2221916 ICD Code: I47.1 - SUPRAVENTRICULAR TACHYCARDIA Status: Acute Current Visit: Yes - Patient Summary/Data Hospital Course: ADMISSION 55-year-old with metastatic anaplastic thyroid cancer - CT scan demonstrates significant worsening from prior exam with - Numerous lung masses compatible with metastatic disease. - Numerous liver lesions compatible with liver metastatic disease. - Left adrenal nodule most likely metastatic. - Large upper abdominal mass with maximum measurement of 16.1 cm. - This surrounds the stomach antrum and proximal duodenum causing narrowing. - This abuts the inferior liver and difficult to exclude liver involvement. - Small amount of ascites. - Questionable lytic bone lesion within L3. - Abdominal pain and weakness secondary to metastatic cancer - Pain has been worsening over the last couple of weeks. Initially attributed to Afinitor. - Likely secondary to worsening disease and side effects of Afinitor. - PSVT - Received multiple adenosine 6 mg IV push and a single labetalol 20 mg IV push - Started on Toprol XL 50 mg in the emergency department - Microcytic anemiahemoglobin 9.3 - Type 2 diabetes - Currently on PO meds PLAN - Admit to ICU on PRN Lopressor, oxycodone and morphine - CODE STATUS DNR/DNI - Patient considering hospice care. OVERNIGHT - Placed on continuous cardiac monitorization and found to have paroxysmal SVT episodes without hemodynamic instability and asymptomatic - Pain responding to IV morphine - Required 6mg IV in 18 hours= 18mg PO MO - Discussed case with patient and he opted for discharge home with hospice - Consult was placed and patient was discharged home - Patient Instructions Diet: Usual Diet as Tolerated - Discharge Plan *PRESCRIPTION DRUG MONITORING PROGRAM REVIEWED*: Not Applicable *COPY OF PRESCRIPTION DRUG MONITORING REPORT IN PATIENT JAMILA: Not Applicable Prescriptions/Med Rec: Sucralfate [Carafate] 1 gm PO TIDAC PRN #90 cup PRN Reason: Dyspepsia Morphine [MS Contin] 15 mg PO DAILY #10 tab.er oxyCODONE 5 mg PO Q4H PRN #60 tablet PRN Reason: Pain (Moderate 4-6) Sennosides [Senna] 8.6 mg PO BID PRN #60 capsule PRN Reason: Constipation Metoprolol Succinate [Toprol XL 50mg] 50 mg PO DAILY #30 tab.er traZODone HCl [Trazodone HCl] 50 mg PO BEDTIME #30 tablet ondansetron HCL [Zofran] 8 mg PO Q8H PRN #90 PRN Reason: Nausea Home Medications: Home Meds Albuterol Sulfate [Albuterol Sulfate Hfa] 8.5 gm IH ASDIRECTED PRN 03/01/20 [History] Sucralfate [Carafate] 1 gm PO ASDIRECTED PRN 03/01/20 [History] Metoprolol Succinate [Toprol XL 50mg] 50 mg PO DAILY #30 tab.er 04/18/20 [Rx] Morphine [MS Contin] 15 mg PO DAILY #10 tab.er 04/18/20 [Rx] Sennosides [Senna] 8.6 mg PO BID PRN #60 capsule 04/18/20 [Rx] Sucralfate [Carafate] 1 gm PO TIDAC PRN #90 cup 04/18/20 [Rx] ondansetron HCL [Zofran] 8 mg PO Q8H PRN #90 04/18/20 [Rx] oxyCODONE 5 mg PO Q4H PRN #60 tablet 04/18/20 [Rx] traZODone HCl [Trazodone HCl] 50 mg PO BEDTIME #30 tablet 04/18/20 [Rx] Oxygen Therapy Mode: Room Air Forms: ED Department Discharge Referrals: Alban Solis MD [Primary Care Provider] - 04/24/20 11:30 am (Please follow up with Dr. Solis on Friday at 1130am.) - Discharge Summary/Plan Comment DC Time >30 min.: Yes (coordinating hospice consult and d/c) - General Info Date of Service: 04/18/20 Subjective Update: Feeling OK Pain is being controlled with current regimen Tolerating diet Does not have any symptoms with tachycardia - Patient Data Vitals - Most Recent: Last Vital Signs Temp 97.3 F 04/18/20 07:39 Pulse 104 H 04/18/20 08:22 Resp 18 04/18/20 07:39 BP 120/73 04/18/20 08:22 Pulse Ox 94 L 04/18/20 07:39 Weight - Most Recent: 87.997 kg - Exam General: Reports: Alert, Oriented, Cooperative, No Acute Distress HEENT: Reports: Pupils Equal, Pupils Reactive, Mucous Membr. Moist/[place] Neck: Reports: Supple Lungs: Reports: Clear to Auscultation, Normal Respiratory Effort. Denies: Decreased Breath Sounds, Crackles, Rales, Rhonchi, Rub, Stridor, Wheezing Cardiovascular: Reports: Regular Rate, Regular Rhythm. Denies: Murmurs, Gallops, Rubs GI/Abdominal Exam: Normal Bowel Sounds, Soft, Non-Tender, Distended. No: Guarding, Rigid, Rebound Neurological: Reports: No New Focal Deficit
[2020-04-18] MEDS ORDERED: traZODone 50 MG Tab PO SCH (21:00)
[2020-04-18] MEDS ORDERED: Simvastatin 10 MG Tab PO SCH (21:00)
== END 2020-04-18 17:20 | disposition home or self-care (01) | DRG 281 ==
LOC: JD.ED 12:21 → JD.ICU 18:09 → JD.MS 04-18 10:54
PROVIDERS: ADMIT Family Medicine; ATTEND Family Medicine
DX: C78.7 Secondary malignant neoplasm of liver and intrahepatic bile duct (principal); C79.72 Secondary malignant neoplasm of left adrenal gland; I47.1 Supraventricular tachycardia; Z66 Do not resuscitate; C78.00 Secondary malignant neoplasm of unspecified lung; C79.31 Secondary malignant neoplasm of brain; Z51.5 Encounter for palliative care; Z20.828 Contact with and (suspected) exposure to other viral communicable diseases; C73 Malignant neoplasm of thyroid gland; D69.6 Thrombocytopenia, unspecified; E83.42 Hypomagnesemia; E83.39 Other disorders of phosphorus metabolism; J45.909 Unspecified asthma, uncomplicated; D50.9 Iron deficiency anemia, unspecified; E11.9 Type 2 diabetes mellitus without complications; E88.09 Other disorders of plasma-protein metabolism, not elsewhere classified; Z79.84 Long term (current) use of oral hypoglycemic drugs; Z79.899 Other long term (current) drug therapy
CPT/HCPCS: 36415; 71045; 71045-26; 74177; 74177-26; 80053; 81001; 82962; 83690; 83735; 84100; 84436; 84484; 85025; 93005; 93010; 96374; 96375; 96376; 99222; 99239; 99284; 99285-25; A9270-GY; J0153; J1170; J1642; J1650; J1815-GY; J2270; J2405; J3475; J3490; J7030; J7050; J7120; Q9963; Q9967; U0002